=== PATIENT | male | born 2000 | race Two or more races ===

== ENCOUNTER 2021-02-13 21:48 | Emergency (ER) | payer OTHER ==
[~2021-02-13] VITALS: Ht 177.8 cm; Wt 97.5 kg
[2021-02-13 22:00] VITALS: BP 117/84
[2021-02-13] MEDS ORDERED: VASELINE LIP THERAPY 10gm TOP PRN (23:00)
== END 2021-02-13 23:28 | disposition home or self-care (01) ==
LOC: ER 21:48
DX: S61.012A Laceration without foreign body of left thumb without damage to nail, initial encounter (principal); W26.0XXA Contact with knife, initial encounter; Y93.89 Activity, other specified; Y92.89 Other specified places as the place of occurrence of the external cause; Y99.8 Other external cause status
CPT/HCPCS: 12001